=== PATIENT | male | born 1985 | race Two or more races ===

== ENCOUNTER 2021-12-30 17:11 | Emergency (ER) | payer MEDICAID, OTHER ==
[~2021-12-30] VITALS: Ht 167.6 cm; Wt 77.1 kg
[2021-12-30 17:12] VITALS: BP 120/56
[2021-12-30] MEDS ORDERED: AMOX-277 PO (22:07)
== END 2021-12-30 22:25 | disposition home or self-care (01) ==
LOC: ER 17:11 → EDBD 17:11 → ER 22:25
DX: H61.23 Impacted cerumen, bilateral (principal); H92.02 Otalgia, left ear